=== PATIENT | female | born 1955 | race African-American/Black ===

== ENCOUNTER 2018-08-22 05:51 | Emergency (ER) | payer OTHER, SELFPAY ==
[2018-08-22] MEDS ORDERED: Ibuprofen 800 MG TAB ONE (06:15)
--- NOTE | 2018-08-22 08:05 | RAD ---
LEFT FORELEG 2 VIEWS: Date: 08/22/18 INDICATION: Left leg pain. COMPARISON: None. IMPRESSION: No acute fracture or subluxation is evident. No radiopaque foreign body noted. POS: [facility]
--- NOTE | 2018-08-22 08:13 | RAD ---
3 VIEWS LEFT ANKLE: Date: 08/22/18 INDICATION: Left ankle pain. COMPARISON: 12/12/15. FINDINGS: There is soft tissue swelling seen circumferentially about the left ankle, but most prominent overlyi ng the lateral malleolus. Ankle mortise and talar dome are preserved. Enthesopathic change seen off t he posterior plantar calcaneus. IMPRESSION: 1. No acute fracture or subluxation is evident. 2. Soft tissue swelling left ankle. POS: [facility]
== END 2018-08-22 07:14 | disposition home or self-care (01) ==
LOC: ERS 05:51
DX: M79.662 Pain in left lower leg (principal)